=== PATIENT | male | born 1990 | race Caucasian/White ===

== ENCOUNTER 2017-12-15 12:10 | Outpatient (REF) | payer BC, SELFPAY ==
[2017-12-15 13:34] LABS: Cholesterol 165 mg/dL (50-200); Glucose 83 mg/dL (70-100); HDL Cholesterol 42 mg/dL (40-60); LDL CHOLESTEROL 118 mg/dL (<100); TSH (W/Ref FT4) 1.82 uIU/mL (0.358-3.74); Triglyceride 52 mg/dL (30-150)
== END 2017-12-15 12:30 ==
LOC: NCHCN 12:10
PROVIDERS: PCP Family Medicine; Visit Provider Family Medicine
DX: E66.9 Obesity, unspecified (principal)
CPT/HCPCS: 80061; 82947; 83721; 84443

== ENCOUNTER 2019-08-04 12:35 | Outpatient (CLI) | payer BC, SELFPAY ==
--- NOTE | 2019-08-04 | DI.RAD_ITS ---
EXAM: XR ANKLE RT COMPLETE CLINICAL HISTORY: RT ANKLE JT PAIN, M25.571 TECHNIQUE: COMPARISON: RIGHT ANKLE COMPLETE from 08/19/2013 XR FOOT RT COMPLETE from 08/04/2019 FINDINGS: Three views of the ankle and three views of the foot were obtained. The ankle mortise is well mainta ined. The alignment of the bones of the foot is within normal limits. No bony abnormality seen invo lving the foot or ankle. IMPRESSION:
== END 2019-08-04 12:55 ==
PROVIDERS: PCP Family Medicine; Visit Provider Nurse Practitioner Family
DX: M25.571 Pain in right ankle and joints of right foot (principal)
CPT/HCPCS: 73610; 73630

== ENCOUNTER 2020-01-03 20:28 | Emergency (ER) | payer OTHER, SELFPAY ==
[2020-01-03 20:34] VITALS: BP 128/67; PULSE 65; RESP 16; TEMP 36.6; O2SAT 100
--- NOTE | 2020-01-03 21:00 | RT.EKG_ITS ---
APPROVED REPORT Exam: Resting ECG Patient Location: E HR:43 bpm ECG Measurements Heart Rate [address] 183 P 32 QRSd 89 QRS 37 QT 426 T 40 QTc 362 Conclusion Sinus bradycardia...rate< 60
--- NOTE | 2020-01-03 21:01 | ED.GENADUL_ITS ---
Discharge Plan Disposition Patient Disposition: HOME Condition: Good Discharge Details Clinical Impression: Syncope, Puncture wound, Abrasion Primary Care Provider: Emiliano Sunshine ED Provider: Fabienne Deng Home Meds and New Rx's Prescriptions: Continued sertraline 100 MG tablet 100 mg PO DAILY RF: 0 Discharge Instructions Instructions: Puncture Wound (ED), Syncope (ED) Additional Instructions: Please encourage water intake. Your syncopal episode is likely associated with a vasovagal stimulation. Please discuss this further with your primary care. Call tomorrow to schedule follow-up treatment in the next 1 to 2 weeks. If in the interim, you have a recurrent syncopal episode, chest pain, palpitations, lightheadedness or other new/worsening symptoms please seek care urgently once again. Please monitor for signs infection of your abrasions while your puncture wound. If you develop redness, warmth, drainage, increased pain, fever/chills or other new/worsening symptoms please seek care urgently once again. Tetanus was updated today. Referrals: Emiliano Sunshine [Primary Care Provider] - Discharge Data Discharge Date/Time-TO BE ENTERED AT DEPARTURE: 01/03/20 22:10 Medical Decision Making Patient is a pleasant 29-year-old male presenting today with chief complaint of fainting spell. Reports a prior to arrival he was at work when he got a piece of wire into his left thumb. States that it embedded approximately 1 to 2 cm. Remove this himself and states that the entire wire was able to be removed. Reports that shortly after doing so he was walking to the place when he suddenly became lightheaded, experienced tunnel vision, feeling of sweating and lost consciousness falling and striking his head. States he immediately woke up and had return to his baseline mental function. He denies any palpitations or chest pain. States that he has had one similar episode historically. Suffered a small abrasion to the lateral aspect of the right thigh. Denies any pain at this time. Reports that he is feeling much improved. Has not had any similar episodes like this with exertion. No past family history of sudden cardiac or early associated with cardiac disease. On exam, patient is resting comfortably. He is normal neurologic exam. He does have an abrasion to the lateral aspect of the right eye. Puncture wound to the left thumb is unable to be visualized secondary size. No palpable skull fracture. Normal cardiac exam. Patient's history and exam is highly suggestive of vasovagal syncope. Associated with him removing a large piece of wire from his thumb. He does not have cardiac risk factors. Will obtain EKG and abundance of precaution. No cardiac abnormalities on exam. ECG reviewed by Dr. Barbour, patient is in a sinus jayde rhythm. He advises no evidence to suggest cardiac source of syncope. Patient is typically in the 60s for HR on chart review, was laying and resting at time of ECG. He also reports regular exercise which may account for his sinus bradycardia. Again, since the bradycardia is baseline for the patient and he has no cardiac risk factors so I doubt dysrhythmia being the source of his syncope. EGSYS score -2 making cardiac source of syncope unlikely. Discussed this with patient. His wounds were cleansed. He soaked his thumb. We will update his tetanus as it is been over 10 years since his last. He was given strict return precautions. I have asked for him to follow-up with his primary care closely. We discussed care of his wounds. All his questions and concerns were addressed and he is agreement this plan. HPI General Mode of arrival: ambulatory . Date/Time Provider Initiated Documentation: 01/03/20 21:00 . Limitations to Documentation: no limitations . Information obtained by: patient and RN notes reviewed . History of Present Illness 29 year old M presents to the emergency department with the chief complaint of passed out, struck head after puncture wound to left thumb, described as mild, with intensity rated at 2. Quality is described as aching, and is localized to the face. Patient reports no radiation. Patient started experiencing this minute(s) and it has been now resolved. No relieving factors improve symptom(s), No exacerbating factors reported . Patient notes denies confusion, chest pain, diaphoresis, fever/chills, headaches, loss of appetite, nausea/vomiting, shortness of breath and weakness. Patient did receive the following treatments prior to arrival, none Related Data Home Medications Medication Instructions Recorded Confirmed sertraline 100 mg PO DAILY 12/09/16 01/03/20 Allergies Allergy/AdvReac Type Severity Reaction Status Date / Time No Known Allergies Allergy Unverified 01/03/20 20:38 General Stated Complaint: HeadInjury HARVEY: 3 Review of Systems Constitutional Constitutional: Reports as per HPI, Denies chills, Reports fatigue, Denies fever(s), Denies frequent falls, Reports headache(s), Denies snoring and Denies weakness Eyes Eyes: Reports as per HPI, Denies blurry vision, Denies change in vision and Denies photophobia ENT Ears, Nose, Mouth, and Throat: Denies vertigo, Reports headache(s) and Denies neck pain Cardiovascular Cardiovascular: Reports as per HPI, Denies chest pain, Denies chest pain with activity, Reports syncope, Denies leg edema, Denies lightheadedness, Denies radiating jaw, neck or arm pain, Denies palpitations, Denies dyspnea and Denies dyspnea on exertion Respiratory Respiratory: Reports as per HPI, Denies chest congestion, Denies cough, Denies dyspnea, Denies dyspnea on exertion, Denies snoring, Denies stridor and Denies wheezing Gastrointestinal Gastrointestinal: Reports as per HPI, Denies abdominal pain, Denies change in bowel habits, Denies nausea and Denies vomiting Genitourinary Genitourinary: Reports system reviewed and no additional complaints, except as documented (denies change in urinary habits) Musculoskeletal Musculoskeletal: Reports as per HPI, Denies back pain, Denies myalgias, Denies muscle cramps, Denies neck pain and Denies numbness Integumentary/Breasts Skin/Breast: Reports as per HPI, Denies rash and Reports wounds Neurologic Neurologic: Reports as per HPI, Denies abnormal movements, Denies abnormal speech, Denies behavioral changes, Denies confusion, Denies vertigo, Reports syncope, Denies frequent falls, Reports headache(s), Denies localized weakness, Denies numbness, Denies sensory deficit and Denies weakness Psychiatric Psychiatric: Denies behavioral changes and Denies confusion Endocrine Endocrine: Reports fatigue and Denies palpitations Allergic/Immunologic Allergic/Immunologic: Denies wheezing [facility] Medical History (Updated 01/03/20 @ 21:54 by ANUJ Adame) Anxiety Surgical History (Updated 01/03/20 @ 20:38 by Karen Veronica) Hx of tonsillectomy Social History Smoking/Tobacco Use Status: Current every day Tobacco Type: cigarettes Alcohol Intake: current Alcohol Intake frequency: holidays/special occasions only Substance use type: marijuana Do you feel safe at home: Yes Do you feel safe in your relationship?: Yes Exam Const General: cooperative, healthy appearing, uncomfortable, no acute distress, well developed and well groomed Nutritional Appearance: average body habitus and well nourished Orientation: alert, awake and oriented x3 [facility] Head: normal to inspection, no palpable skull fracture, normocephalic and atraumatic Ears: hearing grossly normal bilaterally, external ears normal and TM's normal bilaterally General nose exam: external nose normal Mouth: oral mucosae normal and moist mucous membranes Throat: posterior oropharynx normal Eyes General: appearance normal, both eyes and all related structures Alignment and Position: alignment normal Periorbital: periorbital findings normal Eyelids: eyelids normal Sclera: sclerae normal Cornea: corneas normal Pupils: PERRL EOM: EOM intact bilaterally Neck Neck: normal visual inspection, full ROM, no lymphadenopathy and no meningeal signs Resp Effort & Inspection: normal respiratory effort, able to speak in complete sentences and no respiratory distress Auscultation: clear to auscultation bilaterally, no rales, no rhonchi and no wheezes Cardio Rate: regular rate Rhythm: regular rhythm Heart Sounds: S1 normal and S2 normal GI Inspection: normal to inspection and non-distended Palpation: soft, no hepatosplenomegaly, not firm, no guarding, not rigid and nontender Percussion: normal to percussion Auscultation: normal bowel sounds Back/Spine/Pelvis Cervical Spine: normal cervical lordosis and cervical ROM normal Skin General skin exam: no rashes or lesions noted Neuro General: patient alert, patient awake and patient oriented x3 Cranial Nerves: CN's II-XI intact bilaterally Cognition: normal cognition Speech: speech normal Gait: normal gait Motor: muscle tone normal throughout, strength 5/5 throughout, no pronator drift, no movement abnormalities noted and no fasciculations Sensory Exam: no sensory deficits noted Coordination: [id number] test normal and [id number] test normal Extrem General: normal to inspection, capillary refill normal, no pedal edema and no calf tenderness Psych Appearance: grossly normal and well kempt Mental Status: mental status grossly normal Speech and Movement: speech and movement normal Course Vital Signs Vital signs: Vital Signs Temperature 36.6 C 01/03/20 20:34 Pulse 65 01/03/20 20:34 Respiratory Rate 16 01/03/20 20:34 Blood Pressure 128/67 01/03/20 20:34 Pulse Oximetry 100 09/28/20 20:34 Temperature 36.6 C 01/03/20 20:34 Temperature Source Skin 01/03/20 20:34 Pulse 65 01/03/20 20:34 Respiratory Rate 16 01/03/20 20:34 Respiratory Effort Non-Labored 01/03/20 20:39 Respiratory Depth Normal 01/03/20 20:39 Respiratory Pattern Normal 01/03/20 20:39 Blood Pressure 128/67 01/03/20 20:34 Blood Pressure Position Sitting 01/03/20 20:34 Pulse Oximetry 100 01/03/20 20:34 Oxygen Delivery Method Room Air 01/03/20 20:34 Oxygen Flow Rate 0 01/03/20 20:34 Pain Level 2 01/03/20 20:39
--- NOTE | 2020-01-03 21:31 | NUR.NOTE ---
Nursing Note: Right eye brow area cleansed with surgiscrub. Left thumb soaking in soap and water.
[2020-01-03 21:57] VITALS: BP 111/65; PULSE 58; RESP 14; O2SAT 98
--- NOTE | 2020-01-04 11:01 | NUR.NOTE ---
Nursing Note: Patient called requesting a work note. did a hand written note and it was faxed to [facility] at the patient request. Celena Miles
== END 2020-01-03 22:10 | disposition home or self-care (01) ==
PROVIDERS: Emergency Provider Physician Assistant; PCP Family Medicine
DX: R55 Syncope and collapse (principal); S61.032A Puncture wound without foreign body of left thumb without damage to nail, initial encounter; W26.8XXA Contact with other sharp object(s), not elsewhere classified, initial encounter; S00.211A Abrasion of right eyelid and periocular area, initial encounter; W18.39XA Other fall on same level, initial encounter; R00.1 Bradycardia, unspecified
CPT/HCPCS: 90471; 93005; 99284; 93010; 99285

== ENCOUNTER 2020-01-05 09:25 | Outpatient (REF) | payer BC, SELFPAY ==
[2020-01-05 19:35] LABS: Anion Gap 5.2 mmol/L (3-11); BUN 18 mg/dL (7-18); CO2 27.8 mmol/L (21.0-32.0); Calcium 8.7 mg/dL (8.5-10.1); Chloride 108 mmol/L (98-107); Glucose 96 mg/dL (74-106); Potassium 4.1 mmol/L (3.5-5.1); Sodium 141 mmol/L (136-145)
== END 2020-01-05 09:45 ==
LOC: NCHCN 09:25
PROVIDERS: PCP Family Medicine; Visit Provider Family Medicine
DX: R55 Syncope and collapse (principal)
CPT/HCPCS: 80048

== ENCOUNTER 2020-01-09 07:48 | Emergency (ER) | payer BC, SELFPAY ==
[2020-01-09 07:54] VITALS: BP 133/61; PULSE 78; RESP 16; TEMP 37.2; O2SAT 100
--- NOTE | 2020-01-09 08:00 | DI.RAD_ITS ---
EXAM: XR TIB/FIB LT CLINICAL HISTORY: fall rock climbing yesterday TECHNIQUE: COMPARISON: CR,XR XR ANKLE LT COMPLETE from 01/09/2020 FINDINGS: Two views of the leg and three views of the ankle were obtained. There is no evidence fracture or di slocation. IMPRESSION: RADIATION DOSE DELIVERED: Total DLP
--- NOTE | 2020-01-09 08:00 | W.ED.GENAD ---
Discharge Plan Disposition Patient Disposition: HOME Condition: Good Discharge Details Clinical Impression: Ankle sprain Primary Care Provider: Emiliano Sunshine ED Provider: Fabienne Deng Home Meds and New Rx's Prescriptions: Continued sertraline 100 MG tablet 100 mg PO DAILY RF: 0 Discharge Instructions Instructions: Ankle Sprain (ED) Additional Instructions: Encourage rest, ice, elevation. Tylenol and ibuprofen as needed for discomfort. Please continue with boot and crutches while severe pain persist. As your pain begins to subside, you may weight-bear as tolerated. You may advance from the boot into a supportive brace and sneaker. Please follow-up with primary care in 1 to 2 weeks for reevaluation. If you develop any new or worsening symptoms please seek care urgently once again. Stand Alone Forms: Work Release Referrals: Emiliano Sunshine [Primary Care Provider] - Medical Decision Making Patient is a pleasant 29 year old male presenting today with c/c of left ankle injury. He reports that yesterday he was rock climbing when he fell approximately 20ft onto mats. He reports that he landed on his left foot and had sudden onset of severe left ankle pain. No previous injuries or trauma to this. Denies other injury. Denies back pain. No numbness or tingling. States that pain rates up the lateral aspect of the leg. Exam notable for swelling and ecchymosis about the ankle. Pain with medial and lateral malleolar palpation. Limited ROM. Achilles normal. Sensation normal. 2+ distal pulses. No pain over the calcaneous. Pain into proximal fibula with palpation. No lumbar spine pain. FINDINGS: Bones/joints: There is no evidence of acute fracture.There is no evidence of malalignment or dislocation. Soft tissues: Normal. IMPRESSION: There is no evidence of acute fracture.There is no evidence of malalignment or dislocation. FINDINGS: Bones/joints: There is no evidence of acute fracture.There is no evidence of malalignment or dislocation. Soft tissues: Mild bimalleolar soft tissue swelling IMPRESSION: There is no evidence of acute fracture.There is no evidence of malalignment or dislocation. Discussed these findings with the patient. I advised that as he is so exquisitely discomfort having such limited mobility a boot and crutches would be appropriate. Encourage rest, ice, elevation. Tylenol and/or ibuprofen as needed for discomfort. We did discuss advancing from the crutches in the boot no do so. Advise follow-up with primary care in the next 1 to 2 weeks. Work note will be given. Patient is unable to return to work while still in a cam supportive brace. Once questions and concerns were addressed and he is in agreement this plan. HPI General Mode of arrival: wheelchair. Date/Time Provider Initiated Documentation: 01/09/20 08:00. Limitations to Documentation: no limitations. Information obtained by: patient and RN notes reviewed. History of Present Illness 29 year old M presents to the emergency department with the chief complaint of left ankle pain, described as severe, with intensity rated at 9. Quality is described as constant, and is localized to the left and lower extremity. Patient reports no radiation. Patient started experiencing this day(s) (1) and it has been constant. Immobilization improves symptom(s), Movement worsens symptoms . Patient notes no other symptoms.. Patient did receive the following treatments prior to arrival, none Related Data Home Medications Medication Instructions Recorded Confirmed sertraline 100 mg PO DAILY 12/09/16 01/09/20 Allergies Allergy/AdvReac Type Severity Reaction Status Date / Time No Known Allergies Allergy Unverified 01/09/20 07:57 General Stated Complaint: Orthopedic HARVEY: 4 Review of Systems Constitutional Constitutional: Reports as per HPI, Denies chills, Denies fever(s), Denies headache(s) and Denies weakness ENT Ears, Nose, Mouth, and Throat: Denies headache(s) Cardiovascular Cardiovascular: Reports as per HPI Respiratory Respiratory: Reports as per HPI and Denies cough Musculoskeletal Musculoskeletal: Reports as per HPI, Denies back pain and Denies tingling Integumentary/Breasts Skin/Breast: Reports as per HPI, Denies rash and Denies wounds Neurologic Neurologic: Reports as per HPI, Denies headache(s), Denies tingling, Denies paresthesias and Denies weakness [facility] Medical History Anxiety BMI 27.0-27.9,adult Conductive hearing loss Panic disorder Preventative health care Smoker Surgical History Hx of tonsillectomy Social History Smoking/Tobacco Use Status: Current every day Tobacco Type: cigarettes Alcohol Intake: current Alcohol Intake frequency: holidays/special occasions only Substance use type: marijuana Do you feel safe at home: Yes Do you feel safe in your relationship?: Yes Exam Const General: cooperative, healthy appearing, comfortable, no acute distress, well developed and well groomed Nutritional Appearance: average body habitus and well nourished Orientation: alert and awake Resp Effort & Inspection: normal respiratory effort, able to speak in complete sentences and no respiratory distress Cardio Rate: regular rate Rhythm: regular rhythm Skin General skin exam: ecchymosis (medial left ankle) Neuro General: patient alert and patient awake Cognition: normal cognition Speech: speech normal Gait: antalgic (came in via wheelchair, assistance to bed) Motor: muscle tone normal throughout Sensory Exam: no sensory deficits noted Extrem Left lower extremity: normal capillary refill, knee Details: normal to inspection, tenderness Location: of the proximal fibula, normal ROM and knee ligament exam normal; no swelling, lower leg Details: normal to inspection, tenderness Location: of the proximal fibula and of the distal fibula and no edema; no localized swelling and no palpable cords, ankle Details: abnormal to inspection (diffuse swelling, ecchmosis medially), tenderness Location: of the lateral malleolus and of the medial malleolus; not of the achilles tendon (negative Man test), swelling Details: diffusely, abnormal ROM Details: pain with active ROM Details: with plantar flexion, with dorsiflexion, with inversion and with eversion and ecchymosis; no warmth, no abrasions, no lacerations, no crepitus, no penetrating wound and achilles tendon exam normal (normal to palpation, no pain) and foot Details: normal capillary refill, toes with normal ROM, no edema, vascular exam Details: dorsalis pedis pulse present and normal capillary refill and motor-sensory exam Details: light-touch normal; no tenderness (no pain over prox 5th, calcaneous, or elsehwere about the foot), no unusual warmth, no ecchymosis and no crepitus; abnormal to inspection and abnormal ROM Psych Appearance: grossly normal and well kempt Mental Status: mental status grossly normal Speech and Movement: speech and movement normal Course Vital Signs Vital signs: Vital Signs Temperature 37.2 C 01/09/20 07:54 Pulse 78 01/09/20 07:54 Respiratory Rate 16 01/09/20 07:54 Blood Pressure 133/61 01/09/20 07:54 Pulse Oximetry 100 01/09/20 07:54 Temperature 37.2 C 01/09/20 07:54 Temperature Source Skin 01/09/20 07:54 Pulse 78 01/09/20 07:54 Respiratory Rate 16 01/09/20 07:54 Respiratory Effort Non-Labored 01/09/20 07:54 Blood Pressure 133/61 01/09/20 07:54 Blood Pressure Position Sitting 01/09/20 07:54 Pulse Oximetry 100 01/09/20 07:54 Oxygen Delivery Method Room Air 01/09/20 07:54 Oxygen Flow Rate 0 01/09/20 07:54 Pain Level 9 01/09/20 07:54
[2020-01-09] MEDS: Acetaminophen 500 MG TAB 1000 MG PO (08:12)
[2020-01-09] MEDS: Ibuprofen 600 MG TAB PO (08:12)
--- NOTE | 2020-01-09 08:43 | DI.VRAD_ITS ---
PROCEDURE INFORMATION: Exam: XR Left Tibia and Fibula Exam date and time: 01/09/2020 8:22 AM Age: 29 years old Clinical indication: Other: Fall rock climbing yesterday, proximal fibula pain TECHNIQUE: Imaging protocol: XR Left tibia and fibula. Views: 2 views. COMPARISON: No relevant prior studies available. FINDINGS: Bones/joints: There is no evidence of acute fracture.There is no evidence of malalignment or dislocation. Soft tissues: Normal. IMPRESSION: There is no evidence of acute fracture.There is no evidence of malalignment or dislocation. Dictated and Authenticated by: Daquan Pineda MD. Ordering:DARA Loving MD
--- NOTE | 2020-01-09 08:43 | DI.VRAD_ITS ---
PROCEDURE INFORMATION: Exam: XR Left Ankle Exam date and time: 01/09/2020 8:22 AM Age: 29 years old Clinical indication: Other: Fall rock climbing yesterday TECHNIQUE: Imaging protocol: XR Left ankle. Views: 3 or more views. COMPARISON: No relevant prior studies available. FINDINGS: Bones/joints: There is no evidence of acute fracture.There is no evidence of malalignment or dislocation. Soft tissues: Mild bimalleolar soft tissue swelling IMPRESSION: There is no evidence of acute fracture.There is no evidence of malalignment or dislocation. Dictated and Authenticated by: Daquan Pineda MD. Ordering:DARA Loving MD
[2020-01-09 09:08] VITALS: BP 133/61; PULSE 78; RESP 16; TEMP 37.2; O2SAT 100
== END 2020-01-09 09:03 | disposition home or self-care (01) ==
PROVIDERS: Emergency Provider Physician Assistant; PCP Family Medicine
DX: S93.492A Sprain of other ligament of left ankle, initial encounter (principal); W17.89XA Other fall from one level to another, initial encounter; Y93.31 Activity, mountain climbing, rock climbing and wall climbing
CPT/HCPCS: 99284; 73590; 73610; E0114; L4361

== ENCOUNTER 2020-02-21 10:10 | Outpatient (CLI) | payer BC, SELFPAY ==
[2020-02-21 12:10] LABS: Abs Immature Grans 0.03 10^3/uL (0.0-0.06); Absolute Basophil Count 0.07 10^3/uL (0.0-0.2); Absolute Eosinophil Count 0.24 10^3/uL (0.0-0.7); Absolute Lymphocyte Count 2.29 10^3/uL (1.2-3.4); Absolute Monocyte Count 0.57 10^3/uL (0.1-0.8); Absolute Neutrophil Count 3.98 10^3/uL (1.2-6.7); Eosinophils % 3.3; HCT 45.1 % (40.0-50.0); HGB 15.8 g/dL (13.5-17.5); Immature Grans % 0.4; Lymphocytes % 31.9; MCH 31.6 pg (27.0-33.0); MCV 90.2 fL (80-95); MPV 9.1 fL (8.0-11.0); Monocytes % 7.9; Neutrophils % 55.5; Nucleated RBC 0 %; Platelet Count 253 10^3/uL (130-400); RDW 12.2 % (11.8-14.1); RDW-SD 39.8 fL; WBC 7.18 10^3/uL (4.4-10.8)
[2020-02-21 12:24] LABS: ALT 30 U/L (16-63); AST 18 U/L (15-37); Albumin 4.3 g/dL (3.4-5.0); Alkaline Phosphatase 57 U/L (46-116); Anion Gap 5.6 mmol/L (3-11); BUN 18 mg/dL (7-18); Bilirubin, Total 0.5 mg/dL (0.2-1.0); CO2 28.4 mmol/L (21.0-32.0); CREATININE 0.88 mg/dL (0.70-1.30); Calcium 8.8 mg/dL (8.5-10.1); Chloride 106 mmol/L (98-107); Glucose 106 mg/dL (74-106); Potassium 4.2 mmol/L (3.5-5.1); Sodium 140 mmol/L (136-145); Total Protein 7.6 g/dL (6.4-8.2)
[2020-02-21 12:33] LABS: C-Reactive Protein < 0.05 mg/dL (0.0-0.3)
== END 2020-02-21 10:30 ==
PROVIDERS: PCP Family Medicine; Visit Provider Family Medicine
DX: R10.31 Right lower quadrant pain (principal)
CPT/HCPCS: 36415; 80053; 85025; 86140

== ENCOUNTER 2020-02-21 17:03 | Outpatient (CLI) | payer BC, SELFPAY ==
[2020-02-21] MEDS: Omnipaque 350 MG/ML 50 ML BTL IJ (13:08)
[2020-02-21] MEDS: Breeza Beverage 473 ML BTL PO ×2 (13:09)
--- NOTE | 2020-02-21 14:09 | DI.CT_ITS ---
EXAM: CT ABDOMEN AND PELVIS W CLINICAL HISTORY: RLQ ABD PAIN, R10.31, BLOOD IN STOOLS X 3 DAYS TECHNIQUE: Imaging Protocol: Axial computed tomography images with coronal and sagittal reformatted images were created and reviewed CONTRAST MATERIAL: Intravenous: Omnipaque 350 Contrast volume:100 ml Oral: yes COMPARISON: No previous for comparison. FINDINGS: ABDOMEN: Lung Bases: Normal where visualized. Liver: Normal density. No measurable mass. Portal, Superior Mesenteric, and Splenic Veins: Unremarkable. Gallbladder and Biliary Tract: No radiodense calculus or dilation. Pancreas: Normal density, no abnormal calcifications or inflammatory process. Spleen: Normal. Adrenals: No masses seen. Kidneys: Normal size, contour and axis. No radiodense stones or obstructive uropathy. No masses seen. Abdominal Aorta: Abdominal portion non-dilated. Bowel: No obstruction or bowel wall thickening. No evidence of an acute appendicitis. Peritoneal Cavity: No ascites, collection or mesenteric inflammatory response. Lymph Nodes: Mildly enlarged lymph nodes are seen in the inguinal region. Bones: Unremarkable. Soft Tissues: Unremarkable. No evidence of an inguinal hernia. PELVIS: Bladder: Symmetric distention, no gross wall thickening. Reproductive Organs: Unremarkable as visualized. Lymph Nodes: Please see above. Bones: Within normal limits. IMPRESSION: No evidence of an acute abdominal or pelvic process. No CT evidence of an acute appendicitis. RADIATION DOSE DELIVERED: 797.15mGy.cm Total DLP DATA REPOSITORY: All CT scans at this facility are submitted to the National Radiology Data Registry (NRDR) Dose Index Registry (DIR) with the [employer] (ACR). RADIATION OPTIMIZATION: All CT scans at this facility use at least one of these dose optimization te chniques: automated exposure control; mA and/or kV adjustment per patient size (includes targeted exa ms where dose is matched to clinical indication); or iterative reconstruction.
[2020-02-21] MEDS: Omnipaque 350 MG/ML 100 ML BTL IJ (14:31)
[2020-02-21] MEDS: Normal Saline - Diluent 50 ML VIAL IV (14:31)
[2020-02-21] MEDS: Normal Saline Flush 10 ML SYR IVP (14:32)
== END 2020-02-21 17:23 ==
PROVIDERS: PCP Family Medicine; Visit Provider Family Medicine
DX: R10.31 Right lower quadrant pain (principal); K92.1 Melena
CPT/HCPCS: 74177; J3490; Q9967

== ENCOUNTER 2020-02-22 15:05 | Outpatient (REF) | payer BC, SELFPAY ==
[2020-02-22 16:55] LABS: C Diff PCR Negative (Negative)
[2020-02-24 17:13] LABS: Calprotectin <15.6 mcg/g
[2020-02-28 16:12] LABS: Misc Referral (VDH) See Comments
== END 2020-02-22 15:25 ==
LOC: NCHCN 15:05
PROVIDERS: PCP Family Medicine; Visit Provider Family Medicine
DX: R19.7 Diarrhea, unspecified (principal)
CPT/HCPCS: 87493; 83993

== ENCOUNTER 2020-03-24 01:26 | Outpatient (CLI) | payer BC, SELFPAY ==
--- NOTE | 2020-03-27 09:14 | PDOC.EEG_ITS ---
Neurology EEG EEG: [facility] Department of Neurology EEG REPORT Date of Recording: Interpreting Physician: Dr. Verena Belle PCP/Referring Provider: Dr. Sunshine Reason for study: Mr. Ramos is a 29 year-old man with a history of recurrent short, paroxysmal spells of GI pain with LOC/RANDY concerning for patial seizures. Current Medications: Home Medications Medication Instructions Recorded Confirmed Type sertraline 100 mg PO DAILY 12/09/16 03/13/20 History METHODS: A 21 channel digitized electroencephalogram was performed in the [facility] Clinical Neurophysiology Laboratory. The 10/20 international system of electrode placement was used and bipolar and referential electrode montages were recorded. In addition to EEG the patient was monitored for EKG and lateral/vertical eye movements. Activation procedures of photic stimulation and hyperventilation were performed if applicable. Video was used during activation procedures and during events where applicable. The duration of the recording was 30 minutes. DESCRIPTION OF EEG: The patient was noted to be awake only during the recording. During maximal wakefulness an 11-Hz posterior background rhythm was present which was well- modulated, symmetrical, reactive to eye opening, and of moderate voltage. With eye opening the background activity changed to a low voltage mixture of alpha, beta, and occasional theta range frequencies. Faster frequencies were present in the bilateral anterior head regions. There was a normal anterior-posterior voltage gradient. No drowsiness or stage II sleep was recorded. Activating Procedures: Photic stimulation was performed which produced a symmetrical posterior driving response at various flash frequencies. Hyperventilation was performed with moderate effort and produced no physiological slowing of the background. EKG: EKG revealed normal sinus rhythm. INTERPRETATION: This EEG is normal during the awake state as well as during photic stimulation and hyperventilation. PRIOR EEG: none CLINICAL CORRELATION: No focal regions of cerebral dysfunction or epileptiform activity was present. Epilepsy remains a clinical diagnosis and a normal EEG does not rule out epilepsy. Clinical correlation is advised. Verena Belle MD
== END 2020-03-24 01:46 ==
PROVIDERS: PCP Family Medicine; Visit Provider Psychiatry & Neurology Neurology
DX: R40.4 Transient alteration of awareness (principal); R68.89 Other general symptoms and signs
CPT/HCPCS: 95816

== ENCOUNTER 2020-03-27 01:16 | Outpatient (CLI) | payer BC, SELFPAY ==
--- NOTE | 2020-03-27 06:45 | DI.MRI_ITS ---
EXAM: MR BRAIN WO CLINICAL HISTORY: ? focal seizures,PAROXYSMAL SPELL,R40.4 TECHNIQUE: Multiplanar multisequence MRI of the brain was performed. COMPARISON: No exams were available for comparison FINDINGS: VENTRICLES AND EXTRA AXIAL SPACES: Normal in size and morphology for the patient's age. MIDLINE SHIFT: None. CEREBRAL PARENCHYMA: No focus of restricted diffusion to suggest acute infarct. No space-occupying le deep identified. HEMORRHAGE: None. BRAINSTEM/CEREBELLUM: Normal. CALVARIUM: Normal. VISUALIZED PARANASAL SINUSES/MASTOIDS:Clear. CHEESH-NA OF ODOM: Normal flow void. PITUITARY GLAND: Unremarkable. OTHER FINDINGS: None. IMPRESSION: Unremarkable MRI of the brain. DATA REPOSITORY:
== END 2020-03-27 01:36 ==
PROVIDERS: PCP Family Medicine; Visit Provider Psychiatry & Neurology Neurology
DX: R40.4 Transient alteration of awareness (principal)
CPT/HCPCS: 70551

== ENCOUNTER 2020-05-15 15:21 | Outpatient (REF) | payer BC, SELFPAY ==
[2020-05-16 10:06] LABS: Hepatitis C Ab w Rflx HCV PCR Negative (Negative)
[2020-05-16 10:18] LABS: HIV-1/2 Ag & Ab Screen Negative (Negative)
== END 2020-05-15 15:22 | disposition home or self-care (01) ==
LOC: NCHCN 15:21
PROVIDERS: PCP Family Medicine; Visit Provider Family Medicine
DX: Z00.00 Encounter for general adult medical examination without abnormal findings (principal); Z11.4 Encounter for screening for human immunodeficiency virus [HIV]; Z11.59 Encounter for screening for other viral diseases
CPT/HCPCS: 86803; 87389

== ENCOUNTER 2022-03-25 13:18 | Outpatient (CLI) | payer BC, SELFPAY ==
--- NOTE | 2022-03-25 11:00 | DI.RAD_ITS ---
Exam(s) XR WRIST RT COMPL NAVICULAR XR THUMB RT EXAM: XR WRIST RT COMPL NAVICULAR CLINICAL HISTORY: thumb injury, M79.646, S69.0XA. TECHNIQUE: 2D digital imaging was performed. Three views of the thumb. Four views of the wrist.. COMPARISON: CR XR THUMB RT from 03/25/2022 FINDINGS: BONES: Comminuted fracture involving the distal phalanx of the thumb. There is no separation at the articular surface or significant angulation. there is an additional small nondisplaced fracture at the ulnar are aspect of the base of the proximal phalanx of the thumb. This is best seen on the obli que view of the wrist. No additional fractures. No bony destructive lesion is seen. JOINTS: The carpal bones are normally aligned. SOFT TISSUE: Normal. IMPRESSION: Comminuted fracture of the distal phalanx of the thumb. Additional fracture at the medial base of th e proximal phalanx of the thumb. DATA REPOSITORY: RADIATION DOSE DELIVERED:
== END 2022-03-25 13:38 ==
LOC: DI 13:29
PROVIDERS: PCP Family Medicine; Visit Provider Physician Assistant
DX: S69.81XA Other specified injuries of right wrist, hand and finger(s), initial encounter; M79.644 Pain in right finger(s); S62.521A Displaced fracture of distal phalanx of right thumb, initial encounter for closed fracture; S62.511A Displaced fracture of proximal phalanx of right thumb, initial encounter for closed fracture
CPT/HCPCS: 73110; 73140

== ENCOUNTER 2022-04-04 15:48 | Outpatient (CLI) | payer BC, SELFPAY ==
--- NOTE | 2022-04-04 14:45 | DI.RAD_ITS ---
Exam(s) XR THUMB RT EXAM: XR THUMB RT CLINICAL HISTORY: R thumb injury. TECHNIQUE: 2D digital imaging was performed. COMPARISON: X-rays 03/25/2022 FINDINGS: 3 views Again noted is a previously described fractures in the right thumb at 2 locations. The fracture line s in the distal phalanx are again noted and appear unchanged. This reaches the articular surface of the interphalangeal joint without a step at this level seen. The 2nd fracture site is at the medial base of the proximal phalanx where there is a 3 x 1.5 mill[address] er avulsed fragment which appears unchanged. No new additional fractures. No radiopaque foreign bod y. No osseous lesions. IMPRESSION: Stable appearing fracture site in the distal phalanx. Mildly displaced avulsion fracture off the medial base of the proximal phalanx of the thumb again not ed. DATA REPOSITORY: RADIATION DOSE DELIVERED:
== END 2022-04-04 15:49 | disposition home or self-care (01) ==
LOC: DIORS 15:48
PROVIDERS: PCP Family Medicine; Referring Provider Family Medicine; Visit Provider Physician Assistant
DX: S62.521D Displaced fracture of distal phalanx of right thumb, subsequent encounter for fracture with routine healing (principal); X58.XXXD Exposure to other specified factors, subsequent encounter
CPT/HCPCS: 73140

== ENCOUNTER 2022-05-02 14:52 | Outpatient (CLI) | payer BC, SELFPAY ==
--- NOTE | 2022-05-02 11:45 | DI.RAD_ITS ---
Exam(s) XR THUMB RT EXAM: XR THUMB RT CLINICAL HISTORY: f/u r thumb fx. TECHNIQUE: 2D digital imaging was performed. COMPARISON: CR XR THUMB RT from 04/04/2022 FINDINGS: There has been some healing at the fracture site in the distal phalanx although the fracture lines ar e still evident. There is no displacement. Also noted is the fracture fragment off the medial base of the proximal phalanx of the thumb which do es not exhibit further displacement. IMPRESSION: Stable appearance of the 2 fracture sites in the thumb, these being the distal phalanx and proximal m edial base of the proximal phalanx. With regards to the more proximal fracture site, this is in the region of the ulnar collateral ligament. DATA REPOSITORY: RADIATION DOSE DELIVERED:
== END 2022-05-02 14:53 | disposition home or self-care (01) ==
LOC: DIORS 14:53
PROVIDERS: PCP Family Medicine; Referring Provider Family Medicine; Visit Provider Student in an Organized Health Care Education/Training Program
DX: S62.521D Displaced fracture of distal phalanx of right thumb, subsequent encounter for fracture with routine healing (principal); X58.XXXD Exposure to other specified factors, subsequent encounter
CPT/HCPCS: 73140

== ENCOUNTER 2022-06-24 10:37 | Outpatient (CLI) | payer BC, SELFPAY ==
--- NOTE | 2022-06-24 10:17 | DI.RAD_ITS ---
Exam(s) XR THUMB RT EXAM: XR THUMB RT CLINICAL HISTORY: right thumb pain. TECHNIQUE: 2D digital imaging was performed. COMPARISON: CR XR THUMB RT from 05/02/2022 FINDINGS: 3 views The fracture on the medial base of the proximal phalanx of the thumb is again noted. There is no uni on to the adjacent parent bone at this point. Other fracture in the distal phalanx is again noted wi th some further healing and no significant displacement. IMPRESSION: Two fracture sites in the thumb again noted, these being the distal phalanx and proximal medial base of the proximal phalanx. Correlation with ulnar collateral ligament symptoms recommended. DATA REPOSITORY: RADIATION DOSE DELIVERED:
== END 2022-06-24 10:38 | disposition home or self-care (01) ==
LOC: DIORS 10:38
PROVIDERS: PCP Family Medicine; Referring Provider Family Medicine; Visit Provider Physician Assistant
DX: S62.521D Displaced fracture of distal phalanx of right thumb, subsequent encounter for fracture with routine healing; S62.511D Displaced fracture of proximal phalanx of right thumb, subsequent encounter for fracture with routine healing; S63.641D Sprain of metacarpophalangeal joint of right thumb, subsequent encounter; X58.XXXD Exposure to other specified factors, subsequent encounter
CPT/HCPCS: 73140

== ENCOUNTER 2022-07-19 00:50 | Outpatient (CLI) | payer BC, SELFPAY ==
--- NOTE | 2022-07-19 08:30 | DI.MRI_ITS ---
Exam(s) MR IAC BRAIN WO/W EXAM: MR IAC BRAIN WO/W CLINICAL HISTORY: Asymmetrical hearing loss,H90.3. TECHNIQUE: Multiplanar multisequence MRI of the brain and internal auditory canals was performed. CONTRAST MATERIAL: IV Contrast: 18 mL of Magnevist contrast administered. COMPARISON: MR MR BRAIN WO from 03/27/2020 FINDINGS: VENTRICLES AND EXTRA AXIAL SPACES: Normal in size and morphology for the patient's age. HEMORRHAGE: None. CEREBRAL PARENCHYMA: No focus of restricted diffusion to suggest acute infarct. No space-occupying le deep identified. MIDLINE SHIFT: None. BRAINSTEM/CEREBELLUM: Normal. CALVARIUM: Normal. ENHANCEMENT: No suspicious enhancement identified. VISUALIZED PARANASAL SINUSES/MASTOIDS: Clear. IAC/CP ANGLE: The internal auditory canals are within normal limits. The cerebellar pontine angles ar e unremarkable. No enhancing lesions are seen. Visualized portions of the cranial nerves appear withi n normal limits. OTHER FINDINGS: None. IMPRESSION: Unremarkable MRI of the brain and internal auditory canals. DATA REPOSITORY:
[2022-07-19] MEDS: Normal Saline Flush 10 ML SYR IVP (15:40)
[2022-07-19] MEDS: Gadoterate meglumine 20 ML SYRINGE 18 ML IVP (15:41)
== END 2022-07-19 01:10 ==
PROVIDERS: PCP Family Medicine; Visit Provider Registered Nurse Maternal Newborn
DX: H90.3 Sensorineural hearing loss, bilateral (principal)
CPT/HCPCS: 70553

== ENCOUNTER 2023-04-23 16:18 | Outpatient (REF) | payer BC, SELFPAY ==
[2023-04-23 20:45] LABS: Abs Immature Grans 0.01 10^3/uL (0.0-0.06); Absolute Basophil Count 0.08 10^3/uL (0.0-0.2); Absolute Eosinophil Count 0.21 10^3/uL (0.0-0.7); Absolute Lymphocyte Count 3.22 10^3/uL (1.2-3.4); Absolute Monocyte Count 0.82 10^3/uL (0.1-0.8); Absolute Neutrophil Count 1.53 10^3/uL (1.2-6.7); Basophils % 1.4; Eosinophils % 3.6; HCT 43.1 % (40.0-50.0); Immature Grans % 0.2; Lymphocytes % 54.9; MCH 30.9 pg (27.0-33.0); MCHC 34.8 % (32.0-36.0); MCV 89 fL (80-95); MPV 9.3 fL (8.0-11.0); Neutrophils % 25.9; Platelet Count 214 10^3/uL (130-400); RBC 4.86 10^6/uL (4.36-5.78); RDW 12.2 % (11.8-14.1); RDW-SD 40.1 fL; WBC 5.87 10^3/uL (4.4-10.8)
[2023-04-25 12:48] LABS: Chlamydia Result Negative (Negative); GC Result Negative (Negative)
== END 2023-04-23 16:19 | disposition home or self-care (01) ==
LOC: LBN 16:18
PROVIDERS: PCP Family Medicine; Visit Provider Physician Assistant
DX: I89.1 Lymphangitis (principal); N39.0 Urinary tract infection, site not specified; Z11.3 Encounter for screening for infections with a predominantly sexual mode of transmission
CPT/HCPCS: 87491; 87591; 85025; 87086

== ENCOUNTER 2024-05-12 11:46 | Outpatient (REF) | payer BC, SELFPAY ==
[2024-05-12 15:38] LABS: BUN 17 mg/dL (7-18); CREATININE 0.7 mg/dL (0.70-1.30); Calculated LDL 130 mg/dL (<100); Chloride 108 mmol/L (98-107); Cholesterol 199 mg/dL (<200); Estimated GFR 126.33 (mL/min/1.73m2); Glucose 94 mg/dL (74-106); HDL Cholesterol 54 mg/dL (40-60); Potassium 4.1 mmol/L (3.5-5.1); Sodium 142 mmol/L (136-145); Triglyceride 75 mg/dL (<150)
== END 2024-05-12 11:47 | disposition home or self-care (01) ==
LOC: NCHCN 11:46
PROVIDERS: PCP Family Medicine; Visit Provider Student in an Organized Health Care Education/Training Program
DX: Z13.220 Encounter for screening for lipoid disorders (principal); Z13.1 Encounter for screening for diabetes mellitus
CPT/HCPCS: 80048; 80061